=== PATIENT | female | born 1985 | race Caucasian/White ===

== ENCOUNTER 2024-10-22 11:34 | Outpatient (CLI) | payer BC | END 2024-10-22 11:35 | disposition home or self-care (01) | LOC: BICRAD 11:34 | PROVIDERS: ATTEND Family Medicine | DX: R05.1 Acute cough (principal); R50.9 Fever, unspecified; M54.9 Dorsalgia, unspecified; R91.1 Solitary pulmonary nodule | CPT/HCPCS: 71046 ==